=== PATIENT | female | born 1945 | race Caucasian/White ===

== ENCOUNTER 2017-02-07 08:09 | Outpatient (CLI) | payer OTHER ==
[2017-02-08 11:33] LABS: IONIZED CALCIUM 5.7 mg/dL (4.5-5.6)
[2017-02-09 04:14] LABS: URINE CALCIUM 13.1 mg/dL (Not Estab.)
== END 2017-02-07 08:10 | disposition home or self-care (01) ==
LOC: LAB 08:09
DX: E83.52 Hypercalcemia (principal)
CPT/HCPCS: 36415; 81050; 82306; 82330; 82340; 83970

== ENCOUNTER 2017-07-09 08:32 | Outpatient (CLI) | END 2017-07-09 08:33 | disposition home or self-care (01) | LOC: LAB 08:32 | DX: E55.9 Vitamin D deficiency, unspecified (principal); E83.52 Hypercalcemia | CPT/HCPCS: 36415; 82306; 82330 ==

== ENCOUNTER 2018-02-02 08:27 | Outpatient (CLI) | END 2018-02-02 08:28 | disposition home or self-care (01) | LOC: LAB 08:27 | DX: E83.52 Hypercalcemia (principal) | CPT/HCPCS: 36415; 80053; 82330; 83970 ==

== ENCOUNTER 2018-08-08 08:03 | Outpatient (CLI) | payer OTHER | END 2018-08-08 08:04 | disposition home or self-care (01) | LOC: LAB 08:03 | DX: E83.52 Hypercalcemia (principal) | CPT/HCPCS: 36415; 82330 ==